=== PATIENT | female | born 1935 | race Caucasian/White ===

== ENCOUNTER 2017-02-03 16:53 | Emergency (ER) | payer MEDICARE, OTHER ==
[2017-02-03] MEDS ORDERED: FOSAMAX70 M1 PO (17:30)
[2017-02-03] MEDS ORDERED: NORVASC5 M2 PO (17:30)
[2017-02-03] MEDS ORDERED: ASPIRIN EC81 MG PO (17:31)
[2017-02-03] MEDS ORDERED: BENAZEPRIL HCL (17:32)
[2017-02-03] MEDS ORDERED: CALCIUM 500-VI1 EACH (17:33)
[2017-02-03] MEDS ORDERED: MULTIVITAMIN (17:34)
[2017-02-03] MEDS ORDERED: POTASSIUM CHLO20 ME3 ×2 (17:34→17:35)
[2017-02-03] MEDS ORDERED: PRAVACHOL80 M1 PO (17:35)
[2017-02-03] MEDS ORDERED: TRIAMCINOLONE A15 G4 TP (17:36)
== END 2017-02-03 18:11 ==
LOC: EDMED 16:53
PROC: 0HQ0XZZ Repair Scalp Skin, External Approach (ICD-10-PCS; principal; 2017-02-03)
DX: S01.01XA Laceration without foreign body of scalp, initial encounter (principal); W22.8XXA Striking against or struck by other objects, initial encounter; Y92.009 Unspecified place in unspecified non-institutional (private) residence as the place of occurrence of the external cause